=== PATIENT | female | born 1950 | race Caucasian/White ===

== ENCOUNTER 2017-05-27 09:46 | Inpatient (IN) | payer OTHER ==
[2017-05-27] MEDS ORDERED: SODIUM CHLORIDE 500 ML IV STA (10:05)
--- NOTE | 2017-05-27 10:11 | PDOC ---
History of Present Illness - General Stated Complaint: AMS Time Seen by Provider: 05/27/17 09:56 History Source: Patient, [facility] Records - History of Present Illness Timing/Duration: other (this am) Associated Symptoms: denies: chest pain, cough, fever/chills, headaches, nausea/ vomiting, shortness of breath Past History - Past Medical History Allergies/Adverse Reactions: Allergies Allergy/AdvReac Type Severity Reaction Status Date / Time gabapentin [From Neurontin] Allergy Unknown Verified 05/27/17 10:09 Home Medications: Ambulatory Orders Amitriptyline HCl 100 mg PO BID 05/27/17 Apixaban [Eliquis] 5 mg PO BID 05/27/17 Bacitracin - [Bacitracin Topical Ointment -] 1 applic TP BID 05/27/17 Calcium Carbonate/Vitamin D3 [Oyster Shell 500-Vit D3 200 Tb] 1 each PO DAILY Digoxin [Digitek] 250 mcg PO DAILY 05/27/17 Docusate Sodium 300 mg PO HS 05/27/17 Duloxetine HCl 60 mg PO DAILY 05/27/17 Famotidine 20 mg PO BID 05/27/17 Melatonin 3 mg PO HS 05/27/17 Metoprolol Tartrate 12.5 mg PO BID 05/27/17 Oxycodone HCl 5 mg PO TID PRN 05/27/17 Review of Systems - Review of Systems Constitutional: Yes: Malaise. No: Chills, Fever HEENTM: No: Blurred Vision Respiratory: No: Cough, Shortness of Breath, Wheezing Cardiac (ROS): No: Chest Pain, Lightheadedness, Palpitations, Syncope ABD/GI: No: Constipated, Diarrhea, Nausea, Vomiting : No: Dysuria Neurological: No: Headache, Weakness, Dizziness *Physical Exam - Physical Exam General Appearance: Yes: Appropriately Dressed. No: Apparent Distress HEENT: positive: Normal Voice Neck: positive: Supple Respiratory/Chest: positive: Lungs Clear, Normal Breath Sounds. negative: Respiratory Distress Cardiovascular: positive: Regular Rate, S1, S2 Gastrointestinal/Abdominal: positive: Soft. negative: Tender Musculoskeletal: negative: CVA Tenderness Extremity: positive: Normal Inspection Integumentary: positive: Dry, Warm Neurologic: positive: Fully Oriented, Other (slightly bizarre behavior, alert and oriented to time and people only) ED Treatment Course - LABORATORY CBC & Chemistry Diagram: 05/27/17 10:35 05/27/17 10:35 - RADIOLOGY Radiology Studies Ordered: Category Date Time Status HEAD CT WITHOUT CONTRAST [CT] Stat CT Scan 05/27/17 10:05 Ordered CHEST X-RAY PORTABLE* [RAD] Stat Radiology 05/27/17 10:04 Ordered Medical Decision Making - Medical Decision Making 05/27/17 10:06 66-year-old female, history of HTN, HLD, afib on eliquis, CVA w/ residual expressive aphasia, s/p recent R hip repair 2/2 fracture, sent from [facility] for altered mental status this am. As per records from [facility], patient has no history of dementia and usually oriented 3, but that this a.m., seemed confused and thinks she was home and that staff was trying to hurt her w/ knives. Patient able to give history and states she does not feel well. When asked to clarify how she feels, patient states she feels anxious. Pt states she is home in [place] and asking for her nephew who is a [employer] police sergeant and her sister. Pt is oriented to time and people. Denies headache, dizziness, nausea, vomiting, focal weakness, chest pain, shortness of breath, abdominal pain, dysuria, change in bowel movements, fever or chills See exam AMS Non-focal Denies infectious sxs No cardiac/resp sxs R/o CVA vs infxn vs metabolic, less likely cardiac -ekg -cxr -CT head -labs -dispo pending 05/27/17 10:22 05/27/17 12:[address] unremarkable. Pt continues to ahve bizarre behavior in ED and not coherent. Sister at bedside and states this is completely not pt's baseline. States patient has a history of depression and possible anxiety, but not certain if taking any psych meds at home. Will contact PMD and admit at this time 05/27/17 13:21 Case d/w Dr Wallace (PMD) who wants pt admitted to Dr Strickland (covering is Dr Lynn) 05/27/17 13:34 case d/w Dr Lynn who is requesting ABG to r/o CO2 retention. Pt admitted *DC/Admit/Observation/Transfer Diagnosis at time of Disposition: Altered mental status Qualifiers: Altered mental status type: unspecified Qualified Code(s): R41.82 - Altered mental status, unspecified - Discharge Dispostion Condition at time of disposition: Fair Admit: Yes
[2017-05-27 10:14] VITALS: BMI 27.3
[2017-05-27 10:42] LABS: BASOPHIL 1.3 % (0-2.0); EOSINOPHIL 0.1 % (0-4.5); MCH 31.1 pg (25.7-33.7); MCHC 33.2 g/dl (32.0-36.0); MEAN CELL VOLUME 93.7 fl (80-96); MEAN PLT VOLUME 7.4 fl (7.5-11.1); NEUTROPHILS 83.8 % (42.8-82.8); PLATELET COUNT 599 K/MM3 (134-434); RDW 15.8 % (11.6-15.6); WHITE BLOOD COUNT 10.3 K/mm3 (4.0-10.0)
[2017-05-27 10:57] LABS: URINE APPEARANCE CLEAR; URINE BILIRUBIN NEGATIVE (NEGATIVE); URINE BLOOD NEGATIVE (NEGATIVE); URINE COLOR YELLOW; URINE GLUCOSE (UA) NEGATIVE (NEGATIVE); URINE KETONE NEGATIVE (NEGATIVE); URINE LEUK ESTERASE NEGATIVE (NEGATIVE); URINE NITRITE NEGATIVE (NEGATIVE); URINE PROTEIN NEGATIVE (NEGATIVE); URINE UROBILINOGEN NEGATIVE mg/dL (0.2-1.0)
[2017-05-27 11:27] LABS: ALBUMIN 2.8 g/dl (3.4-5.0); ANION GAP 8 (8-16); CALCIUM 8.7 mg/dL (8.5-10.1); CO2 27 mmol/L (21-32); GLUCOSE,RANDOM 97 mg/dL (74-106)
[2017-05-27 11:33] LABS: ALK PHOS 231 U/L (45-117); BILIRUBIN,TOTAL 0.5 mg/dL (0.2-1.0); CREATININE 0.5 mg/dL (0.55-1.02); SGPT/ALT 25 U/L (12-78); TOT PROT 5.9 g/dl (6.4-8.2); TROPONIN I < 0.02 ng/ml (0.00-0.05)
[2017-05-27 11:42] LABS: CPK 187 IU/L (26-192); SGOT/AST 28 U/L (15-37)
--- NOTE | 2017-05-27 13:14 | EKG ---
Test Reason : Blood Pressure : / mmHG Vent. Rate : 089 BPM Atrial Rate : 375 BPM P-R Int : 000 ms QRS Dur : 076 ms QT Int : 340 ms P-R-T Axes : 000 -34 014 degrees QTc Int : 413 ms ATRIAL FIBRILLATION LEFT AXIS DEVIATION LOW VOLTAGE QRS NONSPECIFIC ST AND T WAVE ABNORMALITY ABNORMAL ECG NO PREVIOUS ECGS AVAILABLE CLINICAL CORRELATION IS RECOMMENDED Confirmed by PITO GONZALEZ MD ([id number]) on 05/27/2017 1:14:19 PM Referred By: Confirmed By:PITO GONZALEZ MD
[2017-05-27 15:12] LABS: ARTERIAL BLD GAS O2 SATURATION 95.9 % (90-98.9); ARTERIAL BLOOD GAS BASE EXCESS 1.7 meq/l (-2-2); ARTERIAL BLOOD GAS HCO3 24.8 meq/L (22-26); ARTERIAL BLOOD GAS PO2 73.8 mmHg (80-100); ARTERIAL BLOOD GAS pH 7.48 (7.35-7.45)
[2017-05-27 15:16] LABS: ALLENS TEST POSITIVE; METHEMOGLOBIN 0.5 % (0.4-1.5)
[2017-05-27 15:17] LABS: ART PUNCT SITE LEFT BRACHIAL; LPM/O2% 21%; PT. ON O2? NO; TYPE OF O2 R/A
[2017-05-27] MEDS: RANITIDINE HCL 150 MG TABLET (FP) PO SCH ×2 (18:20→21:42)
[2017-05-27 19:05] LABS: CPK 126 IU/L (26-192); TROPONIN I < 0.02 ng/ml (0.00-0.05)
[2017-05-27] MEDS: DOCUSATE SODIUM 100 MG CAPSULE (FP) PO SCH (21:42)
[2017-05-27] MEDS: ALPRAZolam 0.25 MG TABLET PO PRN (21:42)
[2017-05-27] MEDS: METOPROLOL TARTRATE 25 MG TABLET (FP) PO SCH (21:42)
[2017-05-27] MEDS: APIXABAN 5 MG TABLET PO SCH (21:45)
[2017-05-27] MEDS: MELATONIN 1 MG TABLET PO SCH (21:45)
[2017-05-27] MEDS ORDERED: BENZOIN/ALOE VERA/STORAX/TOLU 58 ML BOTTLE ONE (23:05)
[2017-05-28] MEDS: AMITRIPTYLINE HCL 25 MG TABLET (FP) PO SCH ×3 (01:53→22:40)
[2017-05-28 06:28] LABS: BASOPHIL 1.1 % (0-2.0); EOSINOPHIL 1.6 % (0-4.5); MCH 31.5 pg (25.7-33.7); MCHC 33.6 g/dl (32.0-36.0); MEAN CELL VOLUME 93.9 fl (80-96); MEAN PLT VOLUME 7.2 fl (7.5-11.1); NEUTROPHILS 66.8 % (42.8-82.8); PLATELET COUNT 536 K/MM3 (134-434); RDW 16.3 % (11.6-15.6); WHITE BLOOD COUNT 7.1 K/mm3 (4.0-10.0)
[2017-05-28 06:58] LABS: ALBUMIN 2.5 g/dl (3.4-5.0); ANION GAP 7 (8-16); BILIRUBIN,TOTAL 0.4 mg/dL (0.2-1.0); CALCIUM 8.4 mg/dL (8.5-10.1); CHOLESTEROL 230 mg/dL (50-200); CO2 26 mmol/L (21-32); CREATININE 0.5 mg/dL (0.55-1.02); GLUCOSE,RANDOM 88 mg/dL (74-106); LDL CHOLESTEROL (ONLY SJRH) 163 mg/dL (5-100); PHOSPHOROUS 3.5 mg/dL (2.5-4.9); SGOT/AST 15 U/L (15-37); SGPT/ALT 20 U/L (12-78); TOT PROT 5.2 g/dl (6.4-8.2)
[2017-05-28 06:59] LABS: ALK PHOS 200 U/L (45-117); CPK 100 IU/L (26-192); TROPONIN I < 0.02 ng/ml (0.00-0.05)
--- NOTE | 2017-05-28 09:40 | HP ---
Admitting History and Physical - Admission History of Present Illness: 66-year-old female, history of HTN, HLD, afib on eliquis, CVA w/ residual expressive aphasia, s/p recent R hip repair 2/2 fracture, sent from [facility] for altered mental status this am. As per records from shelter, patient has no history of dementia and usually oriented 3, but that this a.m., seemed confused and thinks she was home and that staff was trying to hurt her w/ knives. Patient able to give history and states she does not feel well. When asked to clarify how she feels, patient states she feels anxious. Pt states she is home in [place] and asking for her nephew who is a security police officer and her sister. 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 Cardiovascular: Yes: AFIB, HTN, Hyperlipdemia ...: No Psych: Yes: Anxiety, Depression Musculoskeletal: Yes: Other (hip pain--s/p LLE surgery) - Smoking History Smoking history: Never smoked Have you smoked in the past 12 months: No - Alcohol/Substance Use Hx Alcohol Use: No Home Medications - Allergies Allergies/Adverse Reactions: Allergies Allergy/AdvReac Type Severity Reaction Status Date / Time gabapentin [From Neurontin] Allergy Unknown Verified 05/27/17 10:09 - Home Medications Home Medications: Ambulatory Orders Amitriptyline HCl 100 mg PO BID 05/27/17 Apixaban [Eliquis] 5 mg PO BID 05/27/17 Bacitracin - [Bacitracin Topical Ointment -] 1 applic TP BID 05/27/17 Calcium Carbonate/Vitamin D3 [Oyster Shell 500-Vit D3 200 Tb] 1 each PO DAILY Digoxin [Digitek] 250 mcg PO DAILY 05/27/17 Docusate Sodium 300 mg PO HS 05/27/17 Duloxetine HCl 60 mg PO DAILY 05/27/17 Famotidine 20 mg PO BID 05/27/17 Melatonin 3 mg PO HS 05/27/17 Metoprolol Tartrate 12.5 mg PO BID 05/27/17 Oxycodone HCl 5 mg PO TID PRN 05/27/17 Review of Systems - Review of Systems Cardiovascular: denies: Chest Pain Respiratory: denies: SOB Gastrointestinal: denies: Abdominal Pain Genitourinary: reports: No Symptoms Musculoskeletal: reports: Extremity Pain Integumentary: reports: Bruising Neurological: reports: Confusion, Weakness Physical Examination Vital Signs: Vital Signs Temperature 98.4 F 05/28/17 07:00 Pulse Rate 75 05/28/17 07:00 Respiratory Rate 21 05/28/17 07:00 Blood Pressure 119/73 05/28/17 07:00 O2 Sat by Pulse Oximetry (%) 96 05/27/17 21:00 Cardiovascular: Yes: Pulse Irregular, Murmur, S1, S2 Respiratory: Yes: Regular, CTA Bilaterally Gastrointestinal: Yes: Normal Bowel Sounds, Soft Labs: CBC, BMP 05/28/17 05:35 05/28/17 05:35 Problem List - Problems (1) Altered mental status Assessment/Plan: UNCLEAR ETIOLOGY CULTURES MRI NEURO AND PSYCH Code(s): R41.82 - ALTERED MENTAL STATUS, UNSPECIFIED Qualifiers: Altered mental status type: unspecified Qualified Code(s): R41.82 - Altered mental status, unspecified (2) History of hip surgery Assessment/Plan: ORTHO CONSULT Code(s): Z98.890 - OTHER SPECIFIED POSTPROCEDURAL STATES (3) HTN (hypertension) Assessment/Plan: MONITOR Vital Signs Period Temp Pulse Resp BP Sys/Anthony Pulse Ox Last 24 Hr 97.2 F-98.6 F 68-108 20-22 110-140/43-88 94-100 Code(s): I10 - ESSENTIAL (PRIMARY) HYPERTENSION (4) Atrial fibrillation Assessment/Plan: ON ELIQUIS CARDIO RATE CONTROLLED Code(s): I48.91 - UNSPECIFIED ATRIAL FIBRILLATION (5) Agitated depression Assessment/Plan: PSYCH CONSULT REVIEW MEDS-- Amitriptyline HCl [Elavil -] 100 mg PO BID Melatonin 3 mg PO HS Duloxetine HCl [Cymbalta -] 60 mg PO DAILY Code(s): F32.2 - MAJOR DEPRESSV DISORD, SINGLE EPSD, SEV W/O PSYCH FEATURES
[2017-05-28] MEDS ORDERED: DULoxetine HCL 30 MG CAPSULE.DR (FP) PO SCH (10:00)
--- NOTE | 2017-05-28 10:27 | PN ---
Progress Note (short form) - Note Progress Note: Pt seen and examined in the ICU. She is s/p right femur surgery (? I was unable to locate previous documents describing the surgery and the date of surgery). She seems to be A&O x 3, and is answering all questions appropriately. She is not anxious at the moment. She has no c/o pain in the right hip, she has c/o mod pain in the right knee. No SOB, no CP, no palpitations. On Eliquis already, therefore the likelihood of PE or symptomatic DVT is much less. AVSS PE RLE with surgical kian, surgery was within the past 3 weeks. Incisions healing well, no drainage, no signs of infection. RLE is grossly NVI. She has good ROM at the right toes, foot, ankle. Limited ROM at the right knee, with resolving bruising. No signs of DVT, - Homman's test, calves both nl. Imp S/p right femur surgery, orthopedically doing well, no acute orthopedic issues. Will follow, NTD at this time.
[2017-05-28] MEDS ORDERED: PT OWN MED DRAWER 7, Y5N ONE ×2 (10:39→21:34)
[2017-05-28] MEDS: RANITIDINE HCL 150 MG TABLET (FP) PO SCH ×2 (10:42→21:35)
[2017-05-28] MEDS: METOPROLOL TARTRATE 25 MG TABLET (FP) PO SCH ×2 (10:42→21:36)
[2017-05-28] MEDS: APIXABAN 5 MG TABLET PO SCH ×2 (10:42→22:40)
--- NOTE | 2017-05-28 13:18 | EKG ---
Test Reason : Blood Pressure : / mmHG Vent. Rate : 077 BPM Atrial Rate : 340 BPM P-R Int : 000 ms QRS Dur : 072 ms QT Int : 370 ms P-R-T Axes : 000 -30 -35 degrees QTc Int : 418 ms ATRIAL FIBRILLATION LEFT AXIS DEVIATION LOW VOLTAGE QRS NONSPECIFIC ST ABNORMALITY ABNORMAL ECG WHEN COMPARED WITH ECG OF 27-MAY-2017 15:52, NONSPECIFIC T WAVE ABNORMALITY NO LONGER EVIDENT IN ANTEROLATERAL LEADS QT HAS LENGTHENED CLINICAL CORRELATION IS RECOMMENDED Confirmed by LISA GOULD, PITO ([id number]) on 05/28/2017 1:18:38 PM Referred By: MELINA SKINNER Confirmed By:PITO GONZALEZ MD
--- NOTE | 2017-05-28 13:28 | EKG ---
Test Reason : Blood Pressure : / mmHG Vent. Rate : 090 BPM Atrial Rate : 104 BPM P-R Int : 000 ms QRS Dur : 076 ms QT Int : 292 ms P-R-T Axes : 000 -29 201 degrees QTc Int : 357 ms ATRIAL FIBRILLATION LOW VOLTAGE QRS POOR R WAVE PROGRESSION ABNORMAL ECG WHEN COMPARED WITH ECG OF 27-MAY-2017 10:27, NONSPECIFIC T WAVE ABNORMALITY, WORSE IN ANTEROLATERAL LEADS QT HAS SHORTENED CLINICAL CORRELATION IS RECOMMENDED Confirmed by LISA GOULD, PITO ([id number]) on 05/28/2017 1:28:06 PM Referred By: Katelyn FERNANDES Confirmed By:PITO GONZALEZ MD
--- NOTE | 2017-05-28 14:56 | CON.CARD ---
Consult Consult Specialty:: Cardiology Referred by:: Shane Reason for Consultation:: afib - History of Present Illness Chief Complaint: AMS History of Present Illness: 66 year old female with a pmhx of htn, hld, afib on eliquis, CVA with expressive aphasia, recent r femur fracture s/p repair sent from [facility] for altered mental status. As per the chart, patient was confused and thought the staff was trying to hurt her. She is slowly improving as per family. Denies any chest pain, palpitations, or dyspnea. No pnd, orthopnea, or edema. - History Source History Provided By: Patient, Medical Record Limitations to Obtaining History: Clinical Condition - Past Medical History CLINIC MGR: Yes: CVA Cardio/Vascular: Yes: AFIB, HTN, Hyperlipdemia ...: No Psych: Yes: Anxiety, Depression Musculoskeletal: Yes: Other (hip pain--s/p LLE surgery) - Alcohol/Substance Use Hx Alcohol Use: No - Smoking History Smoking history: Never smoked Have you smoked in the past 12 months: No Home Medications - Allergies Allergies/Adverse Reactions: Allergies Allergy/AdvReac Type Severity Reaction Status Date / Time gabapentin [From Neurontin] Allergy Unknown Verified 05/27/17 10:09 - Home Medications Home Medications: Ambulatory Orders Amitriptyline HCl 100 mg PO BID 05/27/17 Apixaban [Eliquis] 5 mg PO BID 05/27/17 Bacitracin - [Bacitracin Topical Ointment -] 1 applic TP BID 05/27/17 Calcium Carbonate/Vitamin D3 [Oyster Shell 500-Vit D3 200 Tb] 1 each PO DAILY Digoxin [Digitek] 250 mcg PO DAILY 05/27/17 Docusate Sodium 300 mg PO HS 05/27/17 Duloxetine HCl 60 mg PO DAILY 05/27/17 Famotidine 20 mg PO BID 05/27/17 Melatonin 3 mg PO HS 05/27/17 Metoprolol Tartrate 12.5 mg PO BID 05/27/17 Oxycodone HCl 5 mg PO TID PRN 05/27/17 Vital Signs: Vital Signs Temperature 99 F 05/28/17 14:13 Pulse Rate 88 05/28/17 10:47 Respiratory Rate 20 05/28/17 14:13 Blood Pressure 141/63 05/28/17 14:13 O2 Sat by Pulse Oximetry (%) 96 05/28/17 12:11 Constitutional: Yes: No Distress Neck: Yes: Supple Respiratory: Yes: CTA Bilaterally Gastrointestinal: Yes: Normal Bowel Sounds, Soft Cardiovascular: Yes: Pulse Irregular JVD: No Carotid Bruit: No Heart Sounds: Yes: S1, S2 Murmur: No: Systolic Murmur Edema: No - Other Data Labs, Other Data: CBC, BMP 05/28/17 05:35 05/28/17 05:35 Troponin, BNP 05/27/17 05/28/17 18:05 05:35 Troponin I < 0.02 < 0.02 B-Natriuretic Peptide 2062.78 H Troponin, BNP 05/27/17 05/28/17 18:05 05:35 Troponin I < 0.02 < 0.02 B-Natriuretic Peptide 2062.78 H Imaging - Results Chest X-ray: Report Reviewed EKG: Image Reviewed Problem List - Problems (1) Altered mental status Code(s): R41.82 - ALTERED MENTAL STATUS, UNSPECIFIED Qualifiers: Altered mental status type: unspecified Qualified Code(s): R41.82 - Altered mental status, unspecified (2) Atrial fibrillation Code(s): I48.91 - UNSPECIFIED ATRIAL FIBRILLATION (3) HTN (hypertension) Code(s): I10 - ESSENTIAL (PRIMARY) HYPERTENSION Assessment/Plan 66 year old female with a pmhx of htn, hld, afib on eliquis, CVA with expressive aphasia, recent r femur fracture s/p repair sent from [facility] for altered mental status. As per the chart, patient was confused and thought the staff was trying to hurt her. She is slowly improving as per family. Denies any chest pain, palpitations, or dyspnea. No pnd, orthopnea, or edema. 1) Afib -No cardiac complaints Rates controlled on tele Normotensive Would continue home meds on low dose metoprolol, digoxin, and apixaban 2) AMS Unlikely to be cardiac in etiology Possibly medication induced R/o infection F/u with primary team regarding further work up. Please re-call if needed
--- NOTE | 2017-05-28 15:39 | CON.PSY ---
Psychiatry Consult Chief Complaint: I dont need Cymbalta, Spoke to patients niece who re[ports increased confusion aND SOME PARANOIA. Symptoms: reports: Impaired Concentration - Previous Psychiatric Treatment Outpatient: Less than 6 mos ago Inpatient: Within the last 12 months - Previous Substance Abuse Treatment Outpatient: None Inpatient: None - Reason for Previous Treatment Reason for Previous Treatment: Major Depression - Current Medications Current Medications: Active Medications Alprazolam (Xanax -) 0.5 mg PO Q8H PRN PRN Reason: ANXIETY Last Admin: 05/27/17 21:42 Dose: 0.5 mg Amitriptyline HCl (Elavil -) 100 mg PO BID [facility] Last Admin: 05/28/17 10:42 Dose: 100 mg Apixaban (Eliquis -) 5 mg PO BID [facility] Last Admin: 05/28/17 10:42 Dose: 5 mg Atorvastatin Calcium (Lipitor -) 40 mg PO [facility] Docusate Sodium (Colace -) 300 mg PO [facility] Last Admin: 05/27/17 21:42 Dose: 300 mg Melatonin (Melatonin) 3 mg PO [facility] Last Admin: 05/27/17 21:45 Dose: 3 mg Metoprolol Tartrate (Lopressor -) 12.5 mg PO BID [facility] Last Admin: 05/28/17 10:42 Dose: 12.5 mg Oxycodone HCl (Roxicodone -) 5 mg PO TID PRN PRN Reason: PAIN Ranitidine HCl (Zantac -) 150 mg PO BID [facility] Last Admin: 05/28/17 10:42 Dose: 150 mg - Allergies Allergies: Allergies Allergy/AdvReac Type Severity Reaction Status Date / Time gabapentin [From Neurontin] Allergy Unknown Verified 05/27/17 10:09 - Current Living Status Usual Living Arrangement: Shelter - Current Mental Status Evaluation Appearance: Disheveled Attitude: Cooperative - Affect Affect: Constrictive Appropriateness: Appropriate to Content - Mood Mood: Anxious - Speech/Language Expressive: Coherent - Psychomotor Activity Psychomotor Activity: Normal - Thought Process Thought Process: Intact - Thought Content Hallucinations: Absent Delusions: Absent - Self Perception Self Perception: No Impairment - Cognition Attention: Alert Orientation: Time Memory, Immediate Recall: Intact Memory, Remote: Intact - Concentration Serial Sevens Intact: No Simple Calculations Intact: No - Abstraction Proverb Interpretation: Intact Judgement: Minimally Impaired - Insight Insight: Intact - Impulse Control Impulse Control: Minimally Impaired - Suicidal Ideation Suicidal Ideation: No - Homicidal Ideation Homicidal Ideation: No Assessment/Plan !) d/C Cymbalta 2) continue with Elavil and Xanax PRN. 3) Return to n home when medical;ly stable.
--- NOTE | 2017-05-28 15:47 | CONSULT ---
Consult - text type - Consultation Consultation Note: NEUROLOGY CONSULTATION is greatly appreciated: Events reviewed. Patient examined and discussed with family and Dr. Pickett. 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 PMH sig for HTN, ASHD, AFib, GERD, Chronic depression and chronic Migraines. Chronic arthritis especially the hips. Mained on Metoprolol, digoxin, apixiban, famotidine, amitriptyline (100 mg x many years), and cymbalta (60 mg) x 2 weeks. Oxycodone for pain. On Valium 10 mg TID "PRN" x many years which she uses "when she gets shaky and tachycardic." Placed on amitripyline and many other antidepressants failed. Curiously, her chronic and severe migraines resolved after this. About 5 years ago she developed transient stuttering speech associated with a 3 day migraine and was told she had a stroke. Two weeks ago she fell out of her wheelchair fracturing her Right distal fibula. Since her discharge she has been confused and hallucinating. Family thinks she may have had a similar reaction when given Cymbalta in the past. CT of head (reviewed): Moderate, diffuse, generalized atrophy with scattered periventricular and subcortical microvascular changes. JANNETTE: No bruits. Cor Reg. Clear suture line Right lateral thigh with ecchymosis around the right knee Neuro: Awake, alert, Ox 3. MS is normal Speech sl dysarthric No drift. + sustention tremor (L>R). Normal strength and reflexes. Toes downgoing No FTN dystaxia Normal sensation Gait not tested. IMP: Non-focal exam. Confusion and hallucinations probably on a toxic- metabolic basis ( delirium) associated with polypharmacy including narcotics. Migraines in past (likely with a complicated migraine misdiagnosed as stroke) improved on amitriptyline. Suggest: D/C Cymbalta and observe on amitriptyline monotherapy Avoid narcotics. Observe for signs of benzodiazepine withdrawal and resume Valium PRN if necessary. Check B12, TSH, RPR, Mg++ and r/o occult infection Thank you very much, Espinoza Mcclure MD
[2017-05-28] MEDS: oxyCODONE HCL 5 MG TABLET PO PRN (21:35)
[2017-05-28] MEDS: ATORVASTATIN CA 40 MG TABLET (FP) PO SCH (21:35)
[2017-05-28] MEDS: DOCUSATE SODIUM 100 MG CAPSULE (FP) PO SCH ×2 (21:35→21:45)
[2017-05-28] MEDS: MELATONIN 1 MG TABLET PO SCH (21:37)
[2017-05-28] MEDS: ALPRAZolam 0.25 MG TABLET PO PRN (22:40)
[2017-05-29] MEDS ORDERED: PT OWN MED DRAWER 7, Y5N ONE ×3 (03:20→21:37)
[2017-05-29 06:06] LABS: SERUM IRON 22 ug/dL (27-139); TOTAL IRON BINDING CAPACITY 180 ug/dL (250-450); UIBC 158 ug/dL (118-369)
[2017-05-29] MEDS: oxyCODONE HCL 5 MG TABLET PO PRN ×3 (06:35→21:48)
--- NOTE | 2017-05-29 09:02 | PN ---
Progress Note (short form) - Note Progress Note: Ortho Pt seen and examined s/p right femur orif at another institution Selected Entries 05/29/17 06:00 Temperature 98 F Pulse Rate 75 Respiratory 20 Rate Blood Pressure 108/72 Laboratory Tests 05/28/17 05:35 WBC 7.1 D Hgb 8.3 L Hct 24.8 L Plt Count 536 H incision c/d/i, kian intact, calf soft, nt nvi a/p NTD orthopedically nwb right LE dvt ppx d/w Dr. Chan
[2017-05-29] MEDS: AMITRIPTYLINE HCL 25 MG TABLET (FP) PO SCH ×2 (09:55→21:49)
[2017-05-29] MEDS: METOPROLOL TARTRATE 25 MG TABLET (FP) PO SCH ×2 (09:55→21:48)
[2017-05-29] MEDS: RANITIDINE HCL 150 MG TABLET (FP) PO SCH ×2 (09:55→21:48)
[2017-05-29] MEDS: APIXABAN 5 MG TABLET PO SCH ×2 (09:55→21:50)
--- NOTE | 2017-05-29 14:02 | PN ---
Progress Note, Physician Chief Complaint: ID Consult reviewed and discussed with resident Alert confused agitated No fever - Current Medication List Current Medications: Active Medications Alprazolam (Xanax -) 0.5 mg PO Q8H PRN PRN Reason: ANXIETY Last Admin: 05/28/17 22:40 Dose: 0.5 mg Amitriptyline HCl (Elavil -) 100 mg PO BID [facility] Last Admin: 05/29/17 09:55 Dose: 100 mg Apixaban (Eliquis -) 5 mg PO BID [facility] Last Admin: 05/29/17 09:55 Dose: 5 mg Atorvastatin Calcium (Lipitor -) 40 mg PO HS [facility] Last Admin: 05/28/17 21:35 Dose: 40 mg Docusate Sodium (Colace -) 300 mg PO [facility] Last Admin: 05/28/17 21:45 Dose: Not Given Melatonin (Melatonin) 3 mg PO [facility] Last Admin: 05/28/17 21:37 Dose: 3 mg Metoprolol Tartrate (Lopressor -) 12.5 mg PO BID [facility] Last Admin: 05/29/17 09:55 Dose: 12.5 mg Oxycodone HCl (Roxicodone -) 5 mg PO TID PRN PRN Reason: PAIN Last Admin: 05/29/17 06:35 Dose: 5 mg Ranitidine HCl (Zantac -) 150 mg PO BID [facility] Last Admin: 05/29/17 09:55 Dose: 150 mg - Objective Vital Signs: Vital Signs Temperature 98 F 05/29/17 06:00 Pulse Rate 87 05/29/17 10:00 Respiratory Rate 16 05/29/17 10:00 Blood Pressure 119/83 05/29/17 10:00 O2 Sat by Pulse Oximetry (%) 96 05/29/17 09:00 Constitutional: Yes: Well Nourished, No Distress Eyes: Yes: WNL, Conjunctiva Clear HENT: Yes: WNL, Atraumatic Neck: Yes: WNL, Supple Cardiovascular: Yes: Pulse Irregular, S1, S2 Respiratory: Yes: WNL, Regular, CTA Bilaterally Gastrointestinal: Yes: WNL, Normal Bowel Sounds, Soft. No: Tenderness, Epigastrium Extremities: Yes: Other (right leg kian incision clean) Labs: CBC, BMP 05/28/17 05:35 05/28/17 05:35 Problem List - Problems (1) Altered mental status Code(s): R41.82 - ALTERED MENTAL STATUS, UNSPECIFIED Qualifiers: Altered mental status type: unspecified Qualified Code(s): R41.82 - Altered mental status, unspecified (2) History of hip surgery Code(s): Z98.890 - OTHER SPECIFIED POSTPROCEDURAL STATES Assessment/Plan Assessment Microbiology 05/27/17 10:44 Urine - Urine - Catheterized Urine Culture - Final Vr Ec Faecalis Laboratory Tests 05/27/17 05/28/17 05/28/17 10:44 05:35 05:35 WBC 7.1 D Hgb 8.3 L Hct 24.8 L Plt Count 536 H BUN 5 L Creatinine 0.5 L Total Bilirubin 0.4 AST 15 D ALT 20 Alkaline Phosphatase 200 H Total LDL Cholesterol 163 H Ur Leukocyte Esterase Negative Assessment Altered mental status unclear as to reasons DO NOT FEEL INFECTION CAUSE OF HER MENTAL STATUS Atrial fibrillation "VREF" Aysmptomatic bacteruria NO TREATMENT Efraín GOULD
--- NOTE | 2017-05-29 18:26 | PN ---
Progress Note, Physician Chief Complaint: AWAKE CONFUSED FAMILY BEDSIDE - Current Medication List Current Medications: Active Medications Amitriptyline HCl (Elavil -) 100 mg PO BID [facility] Last Admin: 05/29/17 09:55 Dose: 100 mg Apixaban (Eliquis -) 5 mg PO BID [facility] Last Admin: 05/29/17 09:55 Dose: 5 mg Atorvastatin Calcium (Lipitor -) 40 mg PO [facility] Last Admin: 05/28/17 21:35 Dose: 40 mg Docusate Sodium (Colace -) 300 mg PO HS [facility] Last Admin: 05/28/17 21:45 Dose: Not Given Ferrous Sulfate (Feosol -) 325 mg PO BID [facility] Lorazepam (Ativan Injection -) 0.5 mg IVPUSH BID PRN PRN Reason: AGITATION Melatonin (Melatonin) 3 mg PO [facility] Last Admin: 05/28/17 21:37 Dose: 3 mg Metoprolol Tartrate (Lopressor -) 12.5 mg PO BID [facility] Last Admin: 05/29/17 09:55 Dose: 12.5 mg Oxycodone HCl (Roxicodone -) 5 mg PO TID PRN PRN Reason: PAIN Last Admin: 05/29/17 06:35 Dose: 5 mg Polyethylene Glycol (Miralax (For Daily Use) -) 119 gm PO DAILY [facility] Ranitidine HCl (Zantac -) 150 mg PO BID [facility] Last Admin: 05/29/17 09:55 Dose: 150 mg - Objective Vital Signs: Vital Signs Temperature 98 F 05/29/17 06:00 Pulse Rate 112 H 05/29/17 16:00 Respiratory Rate 17 05/29/17 16:00 Blood Pressure 124/104 05/29/17 16:00 O2 Sat by Pulse Oximetry (%) 96 05/29/17 09:00 Constitutional: Yes: Moderate Distress Eyes: Yes: WNL HENT: Yes: WNL Neck: Yes: WNL Cardiovascular: Yes: WNL Respiratory: Yes: WNL Gastrointestinal: Yes: WNL Genitourinary: Yes: Other Musculoskeletal: Yes: Muscle Weakness Extremities: Yes: WNL Edema: No Integumentary: Yes: WNL Wound/Incision: Yes: Clean/Dry Neurological: Yes: Confusion ...Motor Strength: LLE, RLE Psychiatric: Yes: Agitated, Other Labs: CBC, BMP 05/28/17 05:35 05/28/17 05:35 Problem List - Problems (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, SINGLE EPSD, 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
[2017-05-29] MEDS: ATORVASTATIN CA 40 MG TABLET (FP) PO SCH (21:48)
[2017-05-29] MEDS: FERROUS SO4 325 MG TABLET (FP) PO SCH (21:48)
[2017-05-29] MEDS: DOCUSATE SODIUM 100 MG CAPSULE (FP) PO SCH (21:48)
[2017-05-29] MEDS: MELATONIN 1 MG TABLET PO SCH (21:49)
[2017-05-30] MEDS ORDERED: PT OWN MED DRAWER 7, Y5N ONE ×3 (09:26→20:51)
[2017-05-30] MEDS: FERROUS SO4 325 MG TABLET (FP) PO SCH ×2 (09:34→20:59)
[2017-05-30] MEDS: RANITIDINE HCL 150 MG TABLET (FP) PO SCH ×2 (09:34→21:00)
[2017-05-30] MEDS: APIXABAN 5 MG TABLET PO SCH ×2 (09:34→20:59)
[2017-05-30] MEDS: AMITRIPTYLINE HCL 25 MG TABLET (FP) PO SCH ×2 (09:34→21:00)
[2017-05-30] MEDS: METOPROLOL TARTRATE 25 MG TABLET (FP) PO SCH ×2 (09:34→20:59)
[2017-05-30] MEDS: POLYETHYLENE GLYCOL 3350 119 GM BTL PO SCH (09:35)
[2017-05-30] MEDS: oxyCODONE HCL 5 MG TABLET PO PRN ×2 (09:51→23:44)
[2017-05-30] MEDS: ACETAMINOPHEN 325 MG TABLET (FP) PO PRN ×2 (09:52→23:45)
[2017-05-30] MEDS: PHENAZOPYRIDINE HCL 100 MG TABLET (FP) PO SCH ×2 (11:00→21:00)
[2017-05-30 11:03] LABS: MCH 30.6 pg (25.7-33.7); MCHC 32.9 g/dl (32.0-36.0); MEAN CELL VOLUME 93.2 fl (80-96); MEAN PLT VOLUME 6.6 fl (7.5-11.1); PLATELET COUNT 628 K/MM3 (134-434); RDW 16.2 % (11.6-15.6); WHITE BLOOD COUNT 9.5 K/mm3 (4.0-10.0)
[2017-05-30 11:26] LABS: ALBUMIN 2.6 g/dl (3.4-5.0); ALK PHOS 210 U/L (45-117); ANION GAP 6 (8-16); BILIRUBIN,TOTAL 0.3 mg/dL (0.2-1.0); CALCIUM 8.3 mg/dL (8.5-10.1); CO2 29 mmol/L (21-32); CREATININE 0.5 mg/dL (0.55-1.02); GLUCOSE,RANDOM 102 mg/dL (74-106); SGOT/AST 10 U/L (15-37); SGPT/ALT 18 U/L (12-78); TOT PROT 5.7 g/dl (6.4-8.2)
--- NOTE | 2017-05-30 17:35 | PN ---
Progress Note, Physician Chief Complaint: AWAKE MORE ALERT ANABEL TO RIGHT LEG REMOVED - Current Medication List Current Medications: Active Medications Acetaminophen (Tylenol -) 325 mg PO Q6H PRN PRN Reason: HEADACHE Last Admin: 05/30/17 09:52 Dose: 325 mg Alprazolam (Xanax -) 0.5 mg PO Q8H PRN PRN Reason: ANXIETY Amitriptyline HCl (Elavil -) 100 mg PO BID [facility] Last Admin: 05/30/17 09:34 Dose: 100 mg Apixaban (Eliquis -) 5 mg PO BID [facility] Last Admin: 05/30/17 09:34 Dose: 5 mg Atorvastatin Calcium (Lipitor -) 40 mg PO [facility] Last Admin: 05/29/17 21:48 Dose: 40 mg Docusate Sodium (Colace -) 300 mg PO [facility] Last Admin: 05/29/17 21:48 Dose: Not Given Ferrous Sulfate (Feosol -) 325 mg PO BID [facility] Last Admin: 05/30/17 09:34 Dose: 325 mg Melatonin (Melatonin) 3 mg PO [facility] Last Admin: 05/29/17 21:49 Dose: 3 mg Metoprolol Tartrate (Lopressor -) 12.5 mg PO BID [facility] Last Admin: 05/30/17 09:34 Dose: 12.5 mg Oxycodone HCl (Roxicodone -) 5 mg PO TID PRN PRN Reason: PAIN Last Admin: 05/30/17 09:51 Dose: 5 mg Phenazopyridine HCl (Pyridium -) 100 mg PO BID [facility] Last Admin: 05/30/17 11:00 Dose: 100 mg Polyethylene Glycol (Miralax (For Daily Use) -) 119 gm PO DAILY [facility] Last Admin: 05/30/17 09:35 Dose: Not Given Ranitidine HCl (Zantac -) 150 mg PO BID [facility] Last Admin: 05/30/17 09:34 Dose: 150 mg - Objective Vital Signs: Vital Signs Temperature 98.4 F 05/30/17 10:00 Pulse Rate 93 H 05/30/17 12:00 Respiratory Rate 18 05/30/17 12:00 Blood Pressure 106/54 05/30/17 12:00 O2 Sat by Pulse Oximetry (%) 93 L 05/30/17 09:00 Constitutional: Yes: Mild Distress Eyes: Yes: WNL HENT: Yes: WNL Neck: Yes: WNL Cardiovascular: Yes: WNL Respiratory: Yes: WNL Gastrointestinal: Yes: WNL Genitourinary: Yes: WNL Musculoskeletal: Yes: Muscle Weakness Extremities: Yes: WNL Edema: No Peripheral Pulses WNL: Yes Integumentary: Yes: Skin Tear, Other Wound/Incision: Yes: Dressing Removed, Anabel Removed (31 ANABEL REMOVED TOLERATED WELL) ...Motor Strength: LLE, RLE Psychiatric: Yes: Other Labs: CBC, BMP 05/30/17 10:20 05/30/17 10:20 Problem List - Problems (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
[2017-05-30] MEDS: BACITRACIN 15 GM TUBE TOPICAL OINTMENT TP SCH (19:18)
[2017-05-30] MEDS: ALPRAZolam 0.25 MG TABLET PO PRN (20:29)
[2017-05-30] MEDS: ATORVASTATIN CA 40 MG TABLET (FP) PO SCH (20:59)
[2017-05-30] MEDS: DOCUSATE SODIUM 100 MG CAPSULE (FP) PO SCH (20:59)
[2017-05-30] MEDS: MELATONIN 1 MG TABLET PO SCH (21:00)
[2017-05-31] MEDS: ACETAMINOPHEN 325 MG TABLET (FP) PO PRN ×2 (06:32→17:50)
[2017-05-31] MEDS: oxyCODONE HCL 5 MG TABLET PO PRN ×2 (06:32→17:48)
[2017-05-31 07:38] LABS: MCH 30.8 pg (25.7-33.7); MCHC 32.7 g/dl (32.0-36.0); MEAN CELL VOLUME 94.1 fl (80-96); PLATELET COUNT 628 K/MM3 (134-434); RDW 16.3 % (11.6-15.6)
[2017-05-31 07:58] LABS: ANION GAP 5 (8-16); CALCIUM 8.8 mg/dL (8.5-10.1); CO2 29 mmol/L (21-32); CREATININE 0.6 mg/dL (0.55-1.02); GLUCOSE,RANDOM 90 mg/dL (74-106); MAGNESIUM 2.2 mg/dL (1.8-2.4)
[2017-05-31] MEDS: METOPROLOL TARTRATE 25 MG TABLET (FP) PO SCH ×2 (09:35→21:21)
[2017-05-31] MEDS: PHENAZOPYRIDINE HCL 100 MG TABLET (FP) PO SCH ×2 (09:35→21:17)
[2017-05-31] MEDS: APIXABAN 5 MG TABLET PO SCH ×2 (09:36→21:16)
[2017-05-31] MEDS: RANITIDINE HCL 150 MG TABLET (FP) PO SCH ×2 (09:36→21:17)
[2017-05-31] MEDS: FERROUS SO4 325 MG TABLET (FP) PO SCH ×2 (09:36→21:17)
[2017-05-31] MEDS: AMITRIPTYLINE HCL 25 MG TABLET (FP) PO SCH ×2 (09:36→21:17)
[2017-05-31] MEDS: ALPRAZolam 0.25 MG TABLET PO PRN ×2 (09:43→21:17)
[2017-05-31] MEDS: POLYETHYLENE GLYCOL 3350 119 GM BTL PO SCH (09:44)
--- NOTE | 2017-05-31 10:56 | PN ---
Progress Note, Physician Chief Complaint: awake still talking off tangent - Current Medication List Current Medications: Active Medications Acetaminophen (Tylenol -) 325 mg PO Q6H PRN PRN Reason: HEADACHE Last Admin: 05/31/17 06:32 Dose: 325 mg Alprazolam (Xanax -) 0.5 mg PO Q8H PRN PRN Reason: ANXIETY Last Admin: 05/31/17 09:43 Dose: 0.5 mg Amitriptyline HCl (Elavil -) 100 mg PO BID [facility] Last Admin: 05/31/17 09:36 Dose: 100 mg Apixaban (Eliquis -) 5 mg PO BID [facility] Last Admin: 05/31/17 09:36 Dose: 5 mg Atorvastatin Calcium (Lipitor -) 40 mg PO HS [facility] Last Admin: 05/30/17 20:59 Dose: 40 mg Bacitracin (Bacitracin -) 1 applic TP DAILY [facility] Last Admin: 05/30/17 19:18 Dose: 1 applic Docusate Sodium (Colace -) 300 mg PO HS [facility] Last Admin: 05/30/17 20:59 Dose: 300 mg Ferrous Sulfate (Feosol -) 325 mg PO BID [facility] Last Admin: 05/31/17 09:36 Dose: 325 mg Melatonin (Melatonin) 3 mg PO HS [facility] Last Admin: 05/30/17 21:00 Dose: 3 mg Metoprolol Tartrate (Lopressor -) 12.5 mg PO BID [facility] Last Admin: 05/31/17 09:35 Dose: 12.5 mg Oxycodone HCl (Roxicodone -) 5 mg PO TID PRN PRN Reason: PAIN Last Admin: 05/31/17 06:32 Dose: 5 mg Phenazopyridine HCl (Pyridium -) 100 mg PO BID [facility] Last Admin: 05/31/17 09:35 Dose: 100 mg Polyethylene Glycol (Miralax (For Daily Use) -) 119 gm PO DAILY [facility] Last Admin: 05/31/17 09:44 Dose: Not Given Ranitidine HCl (Zantac -) 150 mg PO BID [facility] Last Admin: 05/31/17 09:36 Dose: 150 mg - Objective Vital Signs: Vital Signs Temperature 97.9 F 05/31/17 09:00 Pulse Rate 124 H 05/31/17 09:00 Respiratory Rate 19 05/31/17 09:00 Blood Pressure 124/91 08/16/17 09:00 O2 Sat by Pulse Oximetry (%) 96 05/31/17 09:00 Constitutional: Yes: Mild Distress Eyes: Yes: WNL HENT: Yes: WNL Neck: Yes: WNL Cardiovascular: Yes: WNL Respiratory: Yes: WNL Gastrointestinal: Yes: WNL Genitourinary: Yes: WNL Musculoskeletal: Yes: Joint Stiffness Extremities: Yes: WNL Edema: No Peripheral Pulses WNL: Yes Integumentary: Yes: WNL Wound/Incision: Yes: Open to air Neurological: Yes: Confusion ...Motor Strength: WNL Psychiatric: Yes: Agitated, Other Labs: CBC, BMP 05/31/17 05:35 05/31/17 05:35 Problem List - Problems (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, SINGLE EPSD, 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
[2017-05-31] MEDS ORDERED: PT OWN MED DRAWER 7, Y5N ONE ×2 (11:55→13:20)
[2017-05-31] MEDS: BACITRACIN 15 GM TUBE TOPICAL OINTMENT TP SCH (11:57)
[2017-05-31] MEDS: NITROFURANTOIN MACROCRYSTAL 50 MG CAPSULE (FP) PO SCH ×2 (12:59→17:48)
[2017-05-31 13:32] LABS: URINE APPEARANCE CLOUDY; URINE BILIRUBIN NEGATIVE (NEGATIVE); URINE BLOOD 1+ (NEGATIVE); URINE COLOR AMBER; URINE GLUCOSE (UA) NEGATIVE (NEGATIVE); URINE KETONE NEGATIVE (NEGATIVE); URINE NITRITE POSITIVE (NEGATIVE); URINE UROBILINOGEN 4.0 E.U/dl mg/dL (0.2-1.0)
[2017-05-31 13:35] LABS: URINE LEUK ESTERASE 2+ (NEGATIVE); URINE PROTEIN 1+ (NEGATIVE)
[2017-05-31 13:38] LABS: URINE BACTERIA RARE /hpf (NONE SEEN); URINE RBC 11 /hpf (0-3); URINE WBC 567 /hpf (3-5)
[2017-05-31] MEDS: DOCUSATE SODIUM 100 MG CAPSULE (FP) PO SCH (21:16)
[2017-05-31] MEDS: ATORVASTATIN CA 40 MG TABLET (FP) PO SCH (21:17)
[2017-05-31] MEDS: MELATONIN 1 MG TABLET PO SCH (23:58)
[2017-06-01] MEDS: NITROFURANTOIN MACROCRYSTAL 50 MG CAPSULE (FP) PO SCH ×3 (00:14→12:35)
[2017-06-01] MEDS: ACETAMINOPHEN 325 MG TABLET (FP) PO PRN ×2 (00:23→08:22)
[2017-06-01] MEDS: oxyCODONE HCL 5 MG TABLET PO PRN ×2 (00:24→08:22)
[2017-06-01] MEDS: ALPRAZolam 0.25 MG TABLET PO PRN (08:21)
[2017-06-01] MEDS: BACITRACIN 15 GM TUBE TOPICAL OINTMENT TP SCH (10:45)
[2017-06-01] MEDS: AMITRIPTYLINE HCL 25 MG TABLET (FP) PO SCH (10:45)
[2017-06-01] MEDS: FERROUS SO4 325 MG TABLET (FP) PO SCH (10:45)
[2017-06-01] MEDS: METOPROLOL TARTRATE 25 MG TABLET (FP) PO SCH (10:45)
--- NOTE | 2017-06-01 10:45 | DS ---
Physical Examination Vital Signs: Vital Signs Temperature 98.1 F 06/01/17 05:46 Pulse Rate 76 06/01/17 05:46 Respiratory Rate 18 06/01/17 05:46 Blood Pressure 122/68 06/01/17 05:46 O2 Sat by Pulse Oximetry (%) 96 05/31/17 21:24 Findings/Remarks: MORE ALERT TODAY, NAD Constitutional: Yes: No Distress Eyes: Yes: WNL HENT: Yes: WNL Neck: Yes: WNL Cardiovascular: Yes: WNL Respiratory: Yes: WNL Gastrointestinal: Yes: WNL Musculoskeletal: Yes: Joint Stiffness Extremities: Yes: WNL Edema: No Peripheral Pulses WNL: Yes Integumentary: Yes: Other Wound/Incision: Yes: Open to air Neurological: Yes: WNL ...Motor Strength: RLE Psychiatric: Yes: WNL Labs: CBC, BMP 05/31/17 05:35 05/31/17 05:35 Discharge Summary Reason For Visit: ALTERED MENTAL STATUS Current Active Problems Agitated depression (Acute) Altered mental status (Acute) Atrial fibrillation (Acute) HTN (hypertension) (Acute) History of hip surgery (Acute) Procedures: Principal: CT HEAD Other Procedures: LABS/CULTURES Hospital Course: ADMITTED FOR AMS, TREATED ABX, CULTURES Condition: Fair - Instructions Diet, Activity, Other Instructions: LOW SODIUM Disposition: [facility] F[facility] - Home Medications Comprehensive Discharge Medication List: Ambulatory Orders Amitriptyline HCl 100 mg PO BID 05/27/17 Apixaban [Eliquis] 5 mg PO BID 05/27/17 Bacitracin - [Bacitracin Topical Ointment -] 1 applic TP BID 05/27/17 Calcium Carbonate/Vitamin D3 [Oyster Shell 500-Vit D3 200 Tb] 1 each PO DAILY Docusate Sodium 300 mg PO HS 05/27/17 Famotidine 20 mg PO BID 05/27/17 Melatonin 3 mg PO HS 05/27/17 Metoprolol Tartrate 12.5 mg PO BID 05/27/17 Oxycodone HCl 5 mg PO TID PRN 05/27/17 Acetaminophen [Tylenol .Regular Strength -] 325 mg PO Q6H PRN #90 tablet Atorvastatin Ca [Lipitor] 40 mg PO HS tablet 06/01/17 Bacitracin - [Bacitracin Topical Ointment -] 1 applic TP DAILY tube 06/01/17 Nitrofurantoin Macrocrystal [Macrodantin -] 50 mg PO Q6HPO #20 tab 06/01/17 Phenazopyridine HCl [Pyridium -] 100 mg PO BID #20 tablet 06/01/17 Ranitidine [Zantac -] 150 mg PO BID tablet 06/01/17
[2017-06-01] MEDS: PHENAZOPYRIDINE HCL 100 MG TABLET (FP) PO SCH (10:46)
[2017-06-01] MEDS: POLYETHYLENE GLYCOL 3350 119 GM BTL PO SCH ×2 (10:46→12:39)
[2017-06-01] MEDS: RANITIDINE HCL 150 MG TABLET (FP) PO SCH (10:46)
[2017-06-01] MEDS: APIXABAN 5 MG TABLET PO SCH (10:46)
[2017-06-01 10:52] VITALS: BP 113/71; PULSE 112; TEMP 98
--- NOTE | 2017-06-06 23:21 | PN ---
Progress Note (short form) - Note Progress Note: Diagnosis Addendum: adding metabolic encephalopathy as cause of altered mental status with UTI. 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
== END 2017-06-01 14:35 | DRG 71 ==
LOC: SUPCPDRO 09:46 → JER 09:46 → JERBED 13:34 → J7W 17:46 → J2W 21:08 → J4S 05-30 21:37
PROVIDERS: ADMIT Family Medicine; ATTEND Family Medicine
DX: G93.41 Metabolic encephalopathy (principal); F32.2 Major depressive disorder, single episode, severe without psychotic features; F19.921 Other psychoactive substance use, unspecified with intoxication with delirium; R41.82 Altered mental status, unspecified; I10 Essential (primary) hypertension; E78.5 Hyperlipidemia, unspecified; I48.91 Unspecified atrial fibrillation; I69.320 Aphasia following cerebral infarction; F41.8 Other specified anxiety disorders; Z98.890 Other specified postprocedural states; T40.695A Adverse effect of other narcotics, initial encounter; Y92.89 Other specified places as the place of occurrence of the external cause
CPT/HCPCS: 36415; 36600; 70450-TC; 71010-TC; 73502-TC-RT; 73552-TC-RT; 80048; 80053; 80061; 80162; 81003; 81015; 82375; 82553; 82728; 82803; 83036; 83050; 83540; 83550; 83605; 83721; 83735; 83880; 84100; 84484; 85025; 85027; 87040; 87086; 87186; 93005; 93010; 97116-GP; 97161-GP; 99285-25